=== PATIENT | female | born 1990 | race Caucasian/White ===

== ENCOUNTER 2022-05-24 11:52 | Inpatient (IN) | payer OTHER ==
[2022-05-24 12:06] VITALS: BMI 24.6
[2022-05-24] MEDS ORDERED: BISMUTH SUBSALICYLATE 524 MG/30 ML PO PRN (12:27)
[2022-05-24] MEDS ORDERED: NICOTINE 10 MG CARTRIDGE (INHALER) IH PRN (12:27)
[2022-05-24] MEDS ORDERED: NALOXONE HCL (KLOXXADO) 8 MG SPRAY NS PRN (12:27)
[2022-05-24] MEDS ORDERED: MAGNESIUM HYDROX 2400MG/30ML ORAL SUSPENSION 30 ML CUP PO PRN (12:27)
[2022-05-24] MEDS ORDERED: DICYCLOMINE HCL 10 MG CAPSULE PO PRN (12:27)
[2022-05-24] MEDS ORDERED: ACETAMINOPHEN 325 MG TABLET (FP) PO PRN (12:27)
[2022-05-24] MEDS ORDERED: NALOXONE HCL 0.4 MG/ML VIAL IM PRN (12:27)
[2022-05-24] MEDS ORDERED: MAG HYDROX/AL HYDROX/SIMETH 30 ML UNIT-DOSE CUP PO PRN (12:27)
[2022-05-24] MEDS ORDERED: BENZOCAINE/MENTHOL (CHLORASEPTIC ) LOZENGE MM PRN (12:27)
[2022-05-24] MEDS ORDERED: ONDANSETRON *ODT* 4 MG TABLET SL PRN (12:27)
[2022-05-24] MEDS ORDERED: BENZONATATE 200 MG CAPSULE PO PRN (12:27)
[2022-05-24] MEDS ORDERED: IBUPROFEN 600 MG TABLET (FP) PO PRN (12:27)
[2022-05-24] MEDS ORDERED: LOPERAMIDE HCL 2 MG CAPSULE PO PRN (12:27)
[2022-05-24] MEDS ORDERED: POLYETHYLENE GLYCOL (HEALTHYLAX) 3350 17 GM PACKET PO PRN (12:27)
[2022-05-24] MEDS ORDERED: guaiFENesin 600 MG TABLET.ER (FP) PO PRN (12:27)
[2022-05-24] MEDS ORDERED: IBUPROFEN 400 MG TABLET (FP) PO PRN (12:27)
[2022-05-24] MEDS ORDERED: diazePAM 5 MG TABLET PO ONE (13:30)
[2022-05-24] MEDS: PRENATAL VITAMINS W/ FOLIC ACID TABLET (FP) PO SCH (13:44)
[2022-05-24] MEDS: NICOTINE 7 MG/24 HOURS TOPICAL PATCH TD SCH (13:44)
[2022-05-24] MEDS ORDERED: diazePAM 5 MG TABLET ONE (13:46)
[2022-05-24] MEDS ORDERED: PRENATAL VITAMINS W/ FOLIC ACID TABLET (FP) PO ONE (13:46)
[2022-05-24] MEDS ORDERED: NICOTINE 7 MG/24 HOURS TOPICAL PATCH TD ONE (13:46)
[2022-05-24] MEDS: methaDONE HCL 40 MG DISPERSABLE TABLET PO SCH (14:31)
[2022-05-24] MEDS: diazePAM 5 MG TABLET PO SCH ×2 (17:46→22:39)
[2022-05-24] MEDS ORDERED: GABAPENTIN 400 MG CAPSULE PO SCH (22:00)
[2022-05-24] MEDS: GABAPENTIN 300 MG CAPSULE PO SCH (22:39)
[2022-05-24] MEDS: MELATONIN 5 MG TABLETS PO SCH (22:39)
[2022-05-24] MEDS: THIAMINE HCL 100 MG TABLET (FP) PO SCH (22:42)
[2022-05-25] MEDS: hydrOXYzine PAMOATE 25 MG CAPSULE (FP) PO PRN (03:42)
[2022-05-25] MEDS: METHOCARBAMOL 500 MG TABLET PO PRN ×2 (03:42→22:30)
[2022-05-25] MEDS: GABAPENTIN 300 MG CAPSULE PO SCH ×3 (05:40→22:25)
[2022-05-25] MEDS: diazePAM 5 MG TABLET PO SCH ×4 (05:40→22:24)
[2022-05-25] MEDS: methaDONE HCL 40 MG DISPERSABLE TABLET PO SCH (08:23)
[2022-05-25] MEDS: PRENATAL VITAMINS W/ FOLIC ACID TABLET (FP) PO SCH (10:05)
[2022-05-25] MEDS: NICOTINE 7 MG/24 HOURS TOPICAL PATCH TD SCH (10:05)
[2022-05-25 10:32] LABS: HEMATOCRIT 37.5 % (32.4-45.2); HEMOGLOBIN 12.6 GM/dL (10.7-15.3); MCH 29.1 pg (25.7-33.7); MCHC 33.6 g/dl (32.0-36.0); MEAN CELL VOLUME 86.5 fl (80-96); MEAN PLT VOLUME 10.5 fl (7.5-11.1); PLATELET COUNT 267 10^3/uL (134-434); RBC 4.33 M/mm3 (3.60-5.2); RDW 13.7 % (11.6-15.6); WHITE BLOOD COUNT 5.1 K/mm3 (4.0-10.0)
[2022-05-25 10:37] LABS: BLOOD UREA NITROGEN 19.1 mg/dL (7-18); CALCIUM 8.9 mg/dL (8.5-10.1)
[2022-05-25 10:38] LABS: ALBUMIN 3.7 g/dl (3.4-5.0)
[2022-05-25 10:41] LABS: CREATININE 0.8 mg/dL (0.55-1.3)
[2022-05-25 10:42] LABS: BILIRUBIN,TOTAL 0.4 mg/dL (0.2-1); TOT PROT 7.1 g/dl (6.4-8.2)
[2022-05-25] MEDS: diazePAM 5 MG TABLET PO PRN (13:38)
[2022-05-25] MEDS: THIAMINE HCL 100 MG TABLET (FP) PO SCH (22:25)
[2022-05-25] MEDS: MELATONIN 5 MG TABLETS PO SCH (22:25)
[2022-05-26] MEDS: diazePAM 5 MG TABLET PO PRN ×4 (00:09→20:34)
[2022-05-26] MEDS: GABAPENTIN 300 MG CAPSULE PO SCH ×3 (05:26→22:06)
[2022-05-26] MEDS: diazePAM 5 MG TABLET PO SCH ×3 (05:26→22:07)
[2022-05-26] MEDS: methaDONE HCL 40 MG DISPERSABLE TABLET PO SCH (05:26)
[2022-05-26] MEDS: PRENATAL VITAMINS W/ FOLIC ACID TABLET (FP) PO SCH (10:20)
[2022-05-26] MEDS: NICOTINE 7 MG/24 HOURS TOPICAL PATCH TD SCH (10:20)
[2022-05-26] MEDS: METHOCARBAMOL 500 MG TABLET PO PRN (22:06)
[2022-05-26] MEDS: MELATONIN 5 MG TABLETS PO SCH (22:08)
[2022-05-26] MEDS: THIAMINE HCL 100 MG TABLET (FP) PO SCH (22:09)
[2022-05-27] MEDS: diazePAM 5 MG TABLET PO PRN ×3 (00:59→21:44)
[2022-05-27] MEDS: methaDONE HCL 40 MG DISPERSABLE TABLET PO SCH (05:12)
[2022-05-27] MEDS: GABAPENTIN 300 MG CAPSULE PO SCH ×3 (05:12→22:19)
[2022-05-27] MEDS: diazePAM 5 MG TABLET PO SCH ×2 (05:12→17:39)
[2022-05-27] MEDS: METHOCARBAMOL 500 MG TABLET PO PRN ×2 (05:17→22:21)
[2022-05-27] MEDS: PRENATAL VITAMINS W/ FOLIC ACID TABLET (FP) PO SCH (10:07)
[2022-05-27] MEDS: NICOTINE 7 MG/24 HOURS TOPICAL PATCH TD SCH (10:07)
[2022-05-27] MEDS: THIAMINE HCL 100 MG TABLET (FP) PO SCH (22:19)
[2022-05-27] MEDS: MELATONIN 5 MG TABLETS PO SCH (22:19)
[2022-05-28] MEDS: diazePAM 5 MG TABLET PO PRN ×2 (01:46→10:36)
[2022-05-28] MEDS: GABAPENTIN 300 MG CAPSULE PO SCH (06:00)
[2022-05-28] MEDS ORDERED: diazePAM 5 MG TABLET PO ONE (06:00)
[2022-05-28] MEDS: methaDONE HCL 40 MG DISPERSABLE TABLET PO SCH (06:00)
[2022-05-28 09:54] VITALS: BP 100/60; PULSE 80; RESP 20; TEMP 97.8
[2022-05-28] MEDS: hydrOXYzine PAMOATE 25 MG CAPSULE (FP) PO PRN (10:35)
[2022-05-28] MEDS: PRENATAL VITAMINS W/ FOLIC ACID TABLET (FP) PO SCH (10:35)
[2022-05-28] MEDS: NICOTINE 7 MG/24 HOURS TOPICAL PATCH TD SCH (10:35)
[2022-05-28] MEDS: METHOCARBAMOL 500 MG TABLET PO PRN (10:35)
[2022-05-28] MEDS ORDERED: GABAPENTIN 400 MG CAPSULE PO SCH (14:00)
[2022-05-28] MEDS ORDERED: GABAPENTIN 300 MG CAPSULE PO SCH (14:00)
== END 2022-05-28 11:58 | disposition other institution (70) | DRG 773 ==
LOC: YASAS 11:52 → Y3N 13:37
PROVIDERS: ADMIT Allergy & Immunology; ATTEND Surgery
PROC: HZ2ZZZZ Detoxification Services for Substance Abuse Treatment (ICD-10-PCS; principal; 2022-05-24)
DX: F11.23 Opioid dependence with withdrawal (principal); F13.20 Sedative, hypnotic or anxiolytic dependence, uncomplicated; F14.20 Cocaine dependence, uncomplicated; F17.210 Nicotine dependence, cigarettes, uncomplicated; F31.9 Bipolar disorder, unspecified; F19.24 Other psychoactive substance dependence with psychoactive substance-induced mood disorder; F41.1 Generalized anxiety disorder; F43.10 Post-traumatic stress disorder, unspecified; F90.9 Attention-deficit hyperactivity disorder, unspecified type; Z91.410 Personal history of adult physical and sexual abuse; Z91.148 Patient's other noncompliance with medication regimen for other reason
CPT/HCPCS: 36415; 80053; 81025; 85027; 86780; 87811; C9803-CS; U0003; U0005